=== PATIENT | female | born 1985 | race African-American/Black ===

== ENCOUNTER 2019-04-11 16:35 | Outpatient (CLI) | payer OTHER, SELFPAY ==
[2019-04-11 17:30] LABS: Alanine Aminotransferase 22 U/L (4-35); Albumin Level 4.5 g/dL (3.5-5.1); Alkaline Phosphatase 45 U/L (38-126); Aspartate Amino Transferase 21 U/L (14-36); Bilirubin,Total 0.2 mg/dL (0.2-1.3); Blood Urea Nitrogen 6 mg/dL (7-17); Calcium 8.9 mg/dL (8.4-10.2); Carbon Dioxide 28 mmol/L (22-30); Chloride 104 mmol/L (98-107); Estimated Glomerular Filt Rate > 60; Glucose 99 mg/dL (65-105); Potassium 4.6 mmol/L (3.4-5.0); Sodium 141 mmol/L (137-145)
== END 2019-04-11 16:36 | disposition home or self-care (01) ==
LOC: ANHLAB 16:40
PROVIDERS: Visit Provider Obstetrics & Gynecology
DX: E87.5 Hyperkalemia (principal)
CPT/HCPCS: 36415; 80053

== ENCOUNTER 2019-10-30 10:10 | Outpatient (CLI) | payer OTHER, SELFPAY ==
--- NOTE | ~2019-10-30 | XR_ITS ---
XR lumbar spine min 4V DATE: 10/30/2019 10:38 INDICATION: Low back pain TECHNIQUE: AP, lateral, bilateral oblique views, coned lateral lumbosacral view COMPARISON: None FINDINGS: Normal alignment of the lumbar spine. No fracture, bone destruction. The lumbar pedicles ar e intact. No spondylolysis or spondylolisthesis. The lumbar and lumbosacral interspaces are well pres erved. IMPRESSION: No significant abnormality Reviewed, dictated and finalized at location A. IMPRESSION: No significant abnormality
== END 2019-10-30 10:11 | disposition home or self-care (01) ==
PROVIDERS: Visit Provider Nurse Practitioner Obstetrics & Gynecology
DX: M54.5 Low back pain (principal)
CPT/HCPCS: 72110

== ENCOUNTER 2021-02-16 09:07 | Outpatient (CLI) | payer OTHER, SELFPAY ==
--- NOTE | ~2021-02-16 | US_ITS ---
EXAMINATION: US soft tissue abdomen DATE: 02/16/2021 09:32 INDICATION: Paraumbilical swelling, mass or lump TECHNIQUE: Multiple grayscale and Doppler ultrasound images of the central abdominal wall near the re gion of the umbilicus were obtained. COMPARISON: None FINDINGS: There is a small fat-containing umbilical hernia located slightly cephalad to the right of the umbili cus which measures 2.9 x 1.8 x 0.6 cm and which extends through a 9 x 5 mm orifice. No herniated jacqui l. Paradoxically there was retraction of a small a portion of the herniated fat with Valsalva. IMPRESSION: 1. Small fat-containing paraumbilical ventral hernia. Reviewed, dictated and finalized at location A. [employer]
== END 2021-02-16 09:08 | disposition home or self-care (01) ==
LOC: ANHIMG 09:09
PROVIDERS: Visit Provider Internal Medicine Gastroenterology
DX: R19.05 Periumbilic swelling, mass or lump (principal); K43.9 Ventral hernia without obstruction or gangrene
CPT/HCPCS: 76705

== ENCOUNTER 2022-10-17 14:07 | Inpatient (IN) | payer OTHER, SELFPAY ==
[2022-10-17] VITALS (20 sets, daily range): BP systolic 79–133; BP diastolic 45–97; PULSE 69–105; RESP 18; TEMP 36.6; O2SAT 96; BMI 25.1
[2022-10-17 15:39] LABS: Basophils Percent Auto 0.3 % (0.2-1.2); Eosinophils Absolute Auto 0.1 K/mm3 (0-0.3); Hematocrit 32.5 % (37.0-47.0); Hemoglobin 11.1 g/dL (12.0-15.0); Immature Granulocyte Absolute 0.04 K/mm3 (0.00-0.031); Immature Granulocyte Percent A 0.6 % (0-0.5); Lymphocytes Absolute Auto 1.26 K/mm3 (0.9-3.2); Lymphocytes Percent Auto 20.4 % (18.3-44.2); Mean Corpuscular HGB Conc 34.2 g/dl (32-36); Mean Corpuscular Hemoglobin 33.2 pg (26-34); Mean Corpuscular Volume 97.3 fl (80-100); Mean Platelet Volume 10.3 fl (7.4-10.4); Monocytes Absolute Auto 0.4 K/mm3 (0.1-0.6); Monocytes Percent Auto 6.6 % (2.6-8.5); Neutrophils Absolute Auto 4.4 K/mm3 (1.3-6.7); Neutrophils Percent Auto 71.1 % (45.5-73.1); Platelet Count Result 196 k/mm3 (150-375); Red Blood Count 3.34 M/mm3 (4.2-5.4); Red Cell Distribution Width 12.1 % (11.5-14.5); White Blood Count 6.2 K/mm3 (4.5-10.0)
[2022-10-17] MEDS: OXYTOCIN 30 UNITS/NS 500 ML 30 UNITS/500 ML BAG IV CONT (16:35)
[2022-10-17] MEDS: LACTATED RINGERS 1,000 ML 125 ML IV CONT (16:35)
--- NOTE | 2022-10-17 18:30 | PM.OBPRVD ---
OB - Delivery Note Procedure Delivery date: 10/17/22 Procedure: Induction method: None Route of delivery: Episiotomy description: None Laceration Description: Perineal - 2nd Degree Delivery repair: vicryl Specimen: No Quantitative Blood Loss (ml): 150 Anesthesia type: None Baby Date of : 10/17/22 Time of : 18:04 Weeks of gestation at delivery: 39 Weight (pounds): 8 Weight (ounces): 7 Placenta delivery description: Spontaneous Cord Vessel Description: 3 Vessels
[2022-10-17] MEDS: OXYTOCIN 30 UNITS/NS 500 ML 30 UNITS/500 ML BAG 125 UNITS IV CONT (18:36)
[2022-10-17] MEDS: IBUPROFEN 600 MG TABLET (18:45)
[2022-10-17] MEDS: BENZOCAINE 20% AER SPR (*SP) 56 GM CAN 1 SPRAY TOPICAL (20:27)
[2022-10-17] MEDS: WITCH HAZEL 40 PADS 1 PAD TOPICAL (20:27)
--- NOTE | 2022-10-17 20:47 | PC.NURSE ---
Patient transferred to post room # 284 via ( W/C ). Support person present. Oriented to unit, room, information board, rooming in, admission packet and security measures. Patient verbalizes understanding.
[2022-10-18 04:00] VITALS: BP 100/62; PULSE 74; RESP 18; TEMP 36.8; O2SAT 96
[2022-10-18 07:36] LABS: Hematocrit 30.5 % (37.0-47.0); Hemoglobin 10.6 g/dL (12.0-15.0)
[2022-10-18 08:33] VITALS: BP 99/58; PULSE 73; RESP 18; TEMP 36.7; O2SAT 98
--- NOTE | 2022-10-18 08:55 | P.PNOB_ITS ---
OB - PN: Subj Subjective Date/time seen: 10/18/22 08:55 Patient comments: no complaints, pain well controlled, incisional pain, tolerating diet and flatus present OB - PN: Obj Data Labs 10/18/22 07:31 Labs: Laboratory Results - last 24 hr 10/17/22 10/18/22 15:10 07:31 WBC 6.2 RBC 3.34 L Hgb 11.1 L 10.6 L Hct 32.5 L 30.5 L MCV 97.3 MCH 33.2 MCHC 34.2 RDW 12.1 Plt Count 196 MPV 10.3 Immature Gran % (Auto) 0.6 H Neut % (Auto) 71.1 Lymph % (Auto) 20.4 Treasure % (Auto) 6.6 Eos % (Auto) 1.0 Baso % (Auto) 0.3 Lymph # (Auto) 1.26 Treasure # (Auto) 0.4 Eos # (Auto) 0.1 Baso # (Auto) 0.0 Abs Immat Gran (auto) 0.04 H Absolute Neuts (auto) 4.4 Absolute Nucleated RBC 0.0 Nucleated RBC % 0.0 Blood Type B Positive Antibody Screen Negative OB - PN A/P Plan day: 1 Plan: routine care Comments: No problems, routine care Time Spent With Patient Time: Total time spent is greater than 50% in coordination of care (as documented) at patient's floor/unit and/or counseling patient: Exam Const: General: comfortable, no acute distress and alert Resp: Effort & Inspection: normal respiratory effort Auscultation: no crackles, no rales and no rhonchi Cardio: Rate: regular rate Heart sounds: no click, no murmurs and no rubs GI: Inspection: non-distended GI Palp: No Tenderness to palpation present (GI) Auscultation: normal bowel sounds Other: Incision - CDI Extrem: General: normal to inspection, no pedal edema and no calf tenderness
[2022-10-18 09:58] LABS: Rapid Plasma Reagin Non-Reactive (NonReactive)
[2022-10-18] MEDS: MULTIVIT/MIN/PREN/FOL AC/IRON TABLET 1 TAB PO (10:08)
[2022-10-18] MEDS: IBUPROFEN 600 MG TABLET PO (10:11)
[2022-10-18] MEDS: DOCUSATE SODIUM 100 MG CAPSULE PO (10:15)
[2022-10-18 11:49] VITALS: BP 98/53; PULSE 68; RESP 18; TEMP 36.7; O2SAT 97
--- NOTE | 2022-10-18 12:41 | PC.NURSE ---
[id number] [facility] recorder helper gravity prospecting #[id number] Dilia was helpful in confirming that patient consents to her sister interpreting for her. Introductions were made, then consulted with patient to assess needs related to . Mother led the conversation with her?plans to feed?her , her history with and the?experience so far. Mother works well with her with encouragement, education and understands some Serbian. Encouraged understanding of the benefits of skin to skin (demonstrating unwrapping infant and placing upright on her chest), stimulating with massage touch, changing positions to encourage wakefulness, how to watch for early feeding cues, responsive feeding, feeding on demand (aiming for 8-12 times in 24 hours, about every 2-3 hours), milk production, building/maintaining a milk supply, duration of feeding, signs of adequate intake/output and how to record on the feeding sheet. Reviewed positioning and ear, shoulder, hip alignment, supporting the breast to facilitate a deep latch, asymmetrical latch (off-center), leading with the chin with a big, open, wide gape and body close to mother. latched optimally to the right breast in football position. Education given to mother of how to visualize suck/swallow and listen for drinking at the breast. was [able/unable] to maintain latch without discomfort to mother. Nipple care reviewed with optimal latch and good positioning. Reviewed good handwashing when or touching the breast/nipples to prevent infection. Resources used to facilitate learning were used with the tool, mom and baby guide. Mother voiced understanding of skin to skin, stimulating with massage touch, responsive feedings, talking to infant to encourage on demand or if it has been 2 -2.5 hours since the start of the last , to call if infant does not latch, or if there is discomfort with . Resources provided for inpatient/outpatient with feeding sheet, name written on the communication board and the mom/baby guide. Mother voiced understanding of information, demonstrated learning and will call if there is a request for assistance. Sister also confirmed that patient understood and doesn't have any more questions at this time. Reported to the Primary RN.
[2022-10-18 15:31] VITALS: BP 113/65; PULSE 66; RESP 20; TEMP 36.4; O2SAT 100
[2022-10-18 19:50] VITALS: BP 93/55; PULSE 66; RESP 16; TEMP 36.8; O2SAT 99
--- NOTE | 2022-10-19 07:28 | PM.OBPNVD ---
OB - PN: Subj Subjective Date/time seen: 10/19/22 07:28 Interval history: s/p vaginal delivery day 2 wants to d/c home doing well no complaints OB - PN: Obj Data Labs 10/18/22 07:31 Labs: Laboratory Results - last 24 hr 10/17/22 10/18/22 15:10 07:31 Hgb 10.6 L Hct 30.5 L RPR Non-reactive OB - PN A/P Plan day: 2 Plan: routine care and discharge home Time Spent With Patient Time: Total time spent is greater than 50% in coordination of care (as documented) at patient's floor/unit and/or counseling patient: Review of Systems Review of Systems: All systems reviewed & are unremarkable except as noted in HPI and below Exam Const: General: cooperative, healthy appearing and comfortable Chest: Chest palpation & inspection: normal inspection of the chest Resp: Effort & Inspection: normal respiratory effort Cardio: Rate: regular rate Rhythm: regular rhythm GI: Inspection: normal to inspection Back/Spine/Pelvis: Back: no CVA tenderness Skin: General skin exam: normal color Neuro: General: patient oriented x3 Extrem: Right lower extremity: normal to inspection Left lower extremity: normal to inspection Psych: Appearance: grossly normal and well kempt
--- NOTE | 2022-10-19 07:32 | PM.OBDSVD ---
DS: Admitting Diagnosis Discharge Date 10/19/22 Admitting Diagnosis labor DS: Discharge Diagnosis Discharge Diagnosis (1) Vaginal delivery: Code(s): O80 - Encounter for full-term uncomplicated delivery Status: Acute OB - DS: Summary OB Procedures : None OB Procedures Intrapartum: Spontaneous Vag Delivery OB Procedures: : None Time Spent with Patient Time attestation: Total time spent providing and/or coordinating discharge services: DS: Data Data Completed and Pending Labs on day of discharge: Labs from last 24 hours 10/18/22 10/17/22 07:31 15:10 Hgb 10.6 L Hct 30.5 L RPR Non-reactive Discharge Plan Discharge Attending physician on discharge: Emile Anne Discharging Clinician: Celeste Hogue Patient Disposition: Home, Self-Care Activity: pelvic rest Diet: regular Patient Instructions: Antibiotic Form Stand Alone Forms: General Discharge Information Follow-up/Referrals: Emile Anne MD [Physician] - 4 Weeks Discharge Medications: New ibuprofen 600 mg Tablet 600 mg PO Q6H PRN (Reason: Cramping) Qty: 30 0RF Date of admission: 10/17/22 14:07 Primary Care Provider: Jaydon Brantley Admitting Provider: Emile Anne Attending physician on admission: Emile Anne Condition: Stable
[2022-10-19 08:30] VITALS: BP 106/64; PULSE 75; RESP 16; TEMP 37.2; O2SAT 99
[2022-10-19] MEDS: MULTIVIT/MIN/PREN/FOL AC/IRON TABLET 1 TAB PO (10:18)
[2022-10-19] MEDS: DOCUSATE SODIUM 100 MG CAPSULE PO (10:19)
[2022-10-19] MEDS: IBUPROFEN 600 MG TABLET PO (10:19)
[2022-10-20 10:27] VITALS: BP 109/63; PULSE 76; RESP 18; TEMP 37.4; O2SAT 100
== END 2022-10-19 15:55 | disposition home or self-care (01) | DRG 560 ==
LOC: ANHLDR 14:43 → ANHOB2 20:54
PROVIDERS: Admitting Provider Obstetrics & Gynecology; PCP Internal Medicine; Visit Provider Obstetrics & Gynecology
DX: O62.3 Precipitate labor (principal); Z37.0 Single live birth; Z3A.39 39 weeks gestation of pregnancy; O70.1 Second degree perineal laceration during delivery
CPT/HCPCS: 36415; 85014; 85018; 85025; 86592; 86850; 86900; 86901; A9270; J2590; J7120

== ENCOUNTER 2024-07-18 09:09 | Emergency (ER) | payer SELFPAY ==
[2024-07-18 09:19] VITALS: BP 100/76; PULSE 75; RESP 16; TEMP 37.4; O2SAT 100
--- NOTE | 2024-07-18 09:21 | ED_ITS ---
HPI - URI/Sore Throat General Chief Complaint: Upper Respiratory Infection Stated Complaint: Fever/Sore Throat Time Seen by Provider: 07/18/24 09:20 Source: patient Mode of arrival: ambulatory Limitations: no limitations History of Present Illness HPI Narrative: Yon is a 38-year-old female patient presenting to the clinic today with complaints of fever and sore throat x2 days. She reports temperature was high as of 100.4. Has taken Tylenol for her symptoms. Denies any runny nose or cough. Related Data Allergies Allergy/AdvReac Type Severity Reaction Status Date / Time No Known Allergies Allergy Verified 07/18/24 09:22 Review of Systems Review of Systems: Pertinent positives per HPI. Patient denies any rash, headache, visual changes, dizziness, cough, shortness of breath, chest pain, palpitations, nausea, vomiting, diarrhea, constipation, abdominal pain, or any urinary issues. PMFSH Social History Social History Smoking status: Never smoker Second hand tobacco smoke exposure: No Substance use: never Lack of Transportation: No Lack of Food: Never True Current Housing: I Have Housing Concerned About Future Housing: No Difficulty Paying Gas/Electric Bills: No Difficulty Paying for Meds: No Currently Unemployed: No Education: High School Diploma/GED Difficulty w/ Childcare or Family Care: No Gender identity (if verbalized by the patient): Female Spiritual care concerns: Yes (Delayed Circumcision) Comments At the time of my signature, I reviewed and agree with the nursing past medical, surgical, social, and family history. There is no relevant family history pertinent to the patient complaint. Exam Narrative: General: Well-developed, well nourished, in no apparent distress Head: Normocephalic, atraumatic Eyes: Pupils equally round and reactive to light bilaterally, EOM intact, sclera and conjunctive clear, no discharge, lids normal Ears: TMs intact and clear, ear canals clear, no drainage, grossly hearing normal. Nose: Nares patent, no discharge, no inflammation, no sinus tenderness. Mouth: Oral pharynx red with bilateral tonsillar enlargement with exudate to bilateral tonsils, no masses, good dentition, MMM. Neck: Supple, trachea midline, enlargement of anterior cervical nodes, no thyroid masses or goiter palpable. Cardio: Regular rate and rhythm, s1 and s2 normal, no murmur appreciated. Resp: Clear to auscultation bilaterally, no rhonchi, rales, wheezing or rubs Course Course Emergency Course: Portions of this record may have been created with voice recognition software. Level of Care: Express Care Visit Vital Signs Vital signs: Vital Signs Temperature 37.4 C 07/18/24 09:19 Pulse Rate 75 07/18/24 09:19 Respiratory Rate 16 07/18/24 09:19 Blood Pressure 100/76 07/18/24 09:19 Pulse Oximetry 100 07/18/24 09:19 Oxygen Delivery Room Air 07/18/24 09:19 Temperature 37.4 C 07/18/24 09:19 Pulse Rate 75 07/18/24 09:19 Respiratory Rate 16 07/18/24 09:19 Blood Pressure 100/76 07/18/24 09:19 Pulse Oximetry 100 07/18/24 09:19 Oxygen Delivery Room Air 07/18/24 09:19 Vital signs reviewed MDM - URI/Sore Throat MDM Narrative Medical decision making narrative: At the time of visit patient is resting comfortably on the exam table. Patient appears to be nontoxic. Labs: Strep test was positive in the clinic today. Plan: Patient has strep pharyngitis. Prescription for amoxicillin was sent to the pharmacy. Supportive measures were discussed with the patient and they voiced understanding discharge instructions and agrees to treatment plan. Return precautions reviewed Differential Diagnosis Differential diagnosis: Likely upper respiratory infection, otitis media, sinusitis, viral infection, bronchitis, influenza, pharyngitis and other (COVID) Discharge Plan Discharge Clinical Impression: Acute streptococcal pharyngitis Patient Disposition: Home Condition: Stable Instructions: Antibiotic Form, Strep Throat (ED) Additional Instructions: Take prescription medications only as prescribed-amoxicillin Change your toothbrush in 24 hours after initiation of the antibiotics. Increase fluids and stay well hydrated Tylenol/motrin for pain/fever Flonase and OTC antihistamines as directed Vicks vapor rub to open sinuses Sinus rinses for congestion Cepacol spray, cough drops, throat lozenges, warm tea with honey/lemon, gargle salt water to soothe throat BRAT diet for diarrhea Clear liquids x 24 hours then advance as tolerated for nausea/vomiting Go to the ED if you develop a worsening in your condition- high fever not controlled by Tylenol or Motrin, dehydration, weakness, lethargy, shortness of breath, or chest pain. Follow up with your PCP in 3-5 days if symptoms persist. Patient Language: Other Prescriptions: New amoxicillin 875 mg tablet 875 mg PO Q12H 10 Days Qty: 20 0RF Follow-up/Referrals: Mary Bravo, RADIATION PROTECTION SPECIALIST [Primary Care Provider] - Stand Alone Forms: Work/School Release IP Time of Disposition: 09:23 Quality NIHSS Nursing Documentation ED NIHSS nursing documentation: reviewed/agree
[2024-07-18 09:25] LABS: EDSTREPNEGPOS1 Positive (Negative)
== END 2024-07-18 09:25 | disposition home or self-care (01) ==
PROVIDERS: Emergency Provider Nurse Practitioner Family; PCP Nurse Practitioner
DX: J02.0 Streptococcal pharyngitis (principal)
CPT/HCPCS: 87880; 99213; G0463